=== PATIENT | female | born 1985 | race Two or more races ===

== ENCOUNTER 2018-06-06 11:08 | Outpatient (CLI) | payer OTHER ==
[~2018-06-06 11:08] MED LIST: ACTIGALL300 MG PO; ATARAX25 MG PO; CETIRIZINE1 MG/1 ML PO; CLONAZEPAM0.5 MG PO; ESTROGEN; PANTOPRAZOLE SO40 MG PO
== END 2018-06-06 11:10 | disposition home or self-care (01) ==
LOC: SONOGRAMA 11:08
DX: K62.5 Hemorrhage of anus and rectum (principal); R74.0 Nonspecific elevation of levels of transaminase and lactic acid dehydrogenase [LDH]; K71.2 Toxic liver disease with acute hepatitis

== ENCOUNTER 2018-10-10 05:50 | Day surgery (SDC) | payer OTHER ==
[2018-10-10] MEDS ORDERED: ULTRACET PO (09:28)
[2018-10-10] MEDS ORDERED: SURFAK240 MG PO (09:29)
[2018-10-10] MEDS ORDERED: POLY119PG PO (09:30)
== END 2018-10-10 14:00 | disposition home or self-care (01) ==
LOC: CIR.AMB 05:50
DX: K80.10 Calculus of gallbladder with chronic cholecystitis without obstruction (principal); K42.9 Umbilical hernia without obstruction or gangrene; K43.2 Incisional hernia without obstruction or gangrene

== ENCOUNTER → 2021-02-03 10:30 | Outpatient (CLI) | payer OTHER ==
[~2021-02-03 10:30] MED LIST changes: +POLY119PG PO; +SURFAK240 MG PO; +ULTRACET PO
== END | disposition home or self-care (01) ==
LOC: LAB 10:30
PROVIDERS: ATTEND Emergency Medicine Pediatric Emergency Medicine
DX: Z03.818 Encounter for observation for suspected exposure to other biological agents ruled out (principal)

== ENCOUNTER 2021-06-25 08:00 | Outpatient (CLI) | payer OTHER | END 2021-06-25 08:30 | disposition home or self-care (01) | LOC: PPH VACUNA 08:00 | DX: Z23 Encounter for immunization (principal) ==

== ENCOUNTER 2021-07-19 15:01 | Outpatient (CLI) | payer OTHER | END 2021-07-19 18:00 | disposition home or self-care (01) | LOC: PPH VACUNA 15:01 | DX: Z23 Encounter for immunization (principal) ==

== ENCOUNTER 2021-11-03 10:01 | Outpatient (CLI) | payer OTHER | END 2021-11-03 10:39 | disposition home or self-care (01) | LOC: SONOGRAMA 10:01 | PROVIDERS: ATTEND Specialist | DX: K80.80 Other cholelithiasis without obstruction (principal) ==

== ENCOUNTER 2022-02-18 08:00 | Outpatient (CLI) | payer OTHER | END 2022-02-18 08:30 | disposition home or self-care (01) | LOC: PPH VACUNA 08:00 | PROVIDERS: ATTEND Emergency Medicine Pediatric Emergency Medicine | DX: Z23 Encounter for immunization (principal) ==

== ENCOUNTER 2022-03-22 09:46 | Outpatient (CLI) | payer OTHER | END 2022-03-22 09:59 | disposition home or self-care (01) | LOC: RAD 09:46 | PROVIDERS: ATTEND Obstetrics & Gynecology Obstetrics | DX: Z01.810 Encounter for preprocedural cardiovascular examination (principal) ==

== ENCOUNTER 2022-10-14 11:29 | Outpatient (CLI) | payer OTHER ==
[~2022-10-14 11:29] MED LIST changes: +DOXYCYCLINE HY100 M2 PO; +ZITHROMAX200 MG PO
== END 2022-10-14 11:38 | disposition home or self-care (01) ==
LOC: SONOGRAMA 11:29
PROVIDERS: ATTEND Specialist
DX: N19 Unspecified kidney failure (principal); N28.89 Other specified disorders of kidney and ureter

== ENCOUNTER → 2023-12-22 | Outpatient (CLI) | payer OTHER | END | disposition home or self-care (01) | LOC: SONOGRAMA 11:01 | PROVIDERS: ATTEND Obstetrics & Gynecology Obstetrics | DX: R10.2 Pelvic and perineal pain (principal) ==

== ENCOUNTER 2024-09-03 12:56 | Emergency (ER) | payer OTHER ==
[~2024-09-03] VITALS: Ht 167.6 cm; Wt 64.9 kg
[2024-09-03 15:13] LABS: HEMATOCRIT 39.8 % (36.0-45.00); HEMOGLOBIN 13.7 g/dL (12.0-15.00); MEAN CELL VOLUME 90.7 fL (80.00-100.00); MEAN CORPUSCULAR HEMOGLOBIN 31.2 pg (27.00-32.0); MEAN CORPUSCULAR HGB CONC 34.4 g/dl (32.0-36.0); PLATELET COUNT 280 K/uL (150-450); RED BLOOD COUNT 4.39 M/uL (4.00-6.00); RED CELL DISTRIBUTION WIDTH 13.9 % (11.5-14.5)
[2024-09-03 15:40] LABS: ALBUMIN 4.1 gm/dL (3.4-5.0); BILIRUBIN TOTAL 1.02 mg/dL (0.3-1.2); TOTAL PROTEIN 7.3 gm/dL (6.4-8.2)
[2024-09-03 15:45] LABS: BILIRUBIN,CONJUGATED 0.18 mg/dL (0.0-0.2); BILIRUBIN,UNCONJUGATED 0.84 mg/dL (0.0-0.6)
[2024-09-03 16:56] LABS: PH,URINE 7.5 (5.0-8.0); URINE APPEARANCE Clear; URINE BILIRRUBIN Negative (NEGATIVE); URINE BLOOD Moderate; URINE COLOR Yellow; URINE GLUCOSE Negative (NEGATIVE); URINE KETONE Negative (NEGATIVE); URINE LEUKOCYTE Small; URINE NITRATE Negative; URINE PROTEIN Negative (NEGATIVE); URINE UROBILINOGEN 0.2 E.U./dl
[2024-09-03 16:58] LABS: URINE BACTERIA 636.1 uL (0.0-1933); URINE EPITHELIAL CELLS 25.6 uL (0.0-38.8); URINE WBC 25.4 uL (0.0-23.2)
[2024-09-03 16:59] LABS: URINE RBC 0.1 uL (0.0-20.8)
== END 2024-09-03 17:47 | disposition home or self-care (01) ==
LOC: ER 12:57
DX: R07.89 Other chest pain (principal); Z88.0 Allergy status to penicillin

== ENCOUNTER 2024-09-11 08:28 | Outpatient (CLI) | payer OTHER | END 2024-09-11 08:41 | disposition home or self-care (01) | LOC: SONOGRAMA 08:28 | DX: R10.9 Unspecified abdominal pain (principal); R10.2 Pelvic and perineal pain ==